=== PATIENT | male | born 1950 | race Caucasian/White ===

== ENCOUNTER → 2021-09-22 | Outpatient (CLI) | payer OTHER ==
--- NOTE | 2021-09-23 09:05 | CARDNUC ---
[place] [address] CARDIAC NUCLEAR IMAGING REPORT Name: GAUDENCIO CRUZ Room: [facility]#: [id number] Admission: 09/22/21 Attend Phys: Daisy Obrien Discharge: Date of : 50 Date of Service: 09/23/2105 Report #: [id number] THIS REPORT FOR: cc: Luciana Hotl,Luciana Thomas,Daniel Reid MD [facility] ~ APPROVED REPORT Imaging Protocol: Rest Tc-99m/Stress Tc-99m 1 day Study performed: 09/22/2021 08:30:00 Indication: Dyspnea Patient Location: Out-Patient Stress Tech: yolanda nathan Stress Nurse: FREDDY CID RN NM Tech:SOLA Seals Ht: 5 ft 7 in Wt: 177 lbs BSA: 1.92 m2 HR: 61 bpm BP: 145/86 mmHg BMI: 27.71 Rhythm: NSR Medical History Medical History: CAD s/p IN and PCI Medications: Aspirin, atorvastatin, Plavix, metoprolol Allergies: Finasteride Cardiac Risk Factors: Hyperlipidemia, hypertension, family history of coronary artery disease and former tobacco use Previous Cardiac Procedures: PCI Pretest Chest Pain Characteristics: Dyspnea on exertion Exercise History: Physically active Physical Disabilities: Knees Meds Held (24 hrs): None Meds Held (48 hrs): None Resting Data Rest SPECT myocardial perfusion imaging was performed in supine position 30 minutes following the intravenous injection of 9.7 mCi of Tc-99m Sestamibi. Time of rest injection: 839 Date: 09/22/2021 The images were gated to evaluate regional wall motion and calculate left ventricular ejection fraction. Administration Route: IV Administration Site: [place] [address] CARDIAC NUCLEAR IMAGING REPORT Name: GAUDENCIO CRUZ [id number] Admission: 09/22/21 Attend Phys: Daisy Obrien Discharge: Date of : 50 Date of Service: 09/23/21 0905 Report #: [id number] Pharmacologic Stress Pharmacologic stress test was performed by injecting Regadenoson 0.4 mg IV push over 10-15 seconds immediately followed by the intravenous injection of 34.6 mCi of Tc-99m Sestamibi. Time of stress injection: 929 Date: 09/22/2021 Administration Route: IV Administration Site: [facility] Gated Stress SPECT was performed 40 minutes after stress injection. The images were gated to evaluate regional wall motion and calculate left ventricular ejection fraction. Prone imaging was performed. Stress Test Details Stress Test: Pharmacologic stress testing performed using 0.4 mg of regadenoson per 5 mL given IV over 10 seconds. Reason for pharmacologic stress test: physical limitation. HR Max Heart Rate (APMHR): 150 bpm Resting HR: 61 bpm Target HR (85% APMHR): 127 bpm Max HR Achieved: 95 bpm % of APMHR: 63 Recovery HR: 86 bpm HR response to stress: Accelerated HR response to stress BP Resting BP: 145/86 mmHg Max BP: 148/83 mmHg Recovery BP: 147/86 mmHg BP response to stress: Normal blood pressure response to stress. ECG Resting ECG: Sinus Rhythm Stress ECG: Sinus Rhythm ST Change: None Maximum ST Deviation: 0.5 mm Arrhythmia: None Recovery ECG: Sinus Rhythm Recovery ST Change: None Recovery ST Deviation: 0.5 mm Recovery Arrhythmia: None Clinical Reason for Termination: Completed protocol Stress Symptoms: [place] [address] CARDIAC NUCLEAR IMAGING REPORT Name: MECCA CRUZLERMO [facility] [id number] Admission: 09/22/21 Attend Phys: Daisy Obrien Discharge: Date of : 50 Date of Service: 09/23/21 0905 Report #: [id number] The patient tolerated Lexiscan infusion without cardiac symptoms. Stress ECG Conclusion The baseline twelve-lead EKG shows sinus rhythm without significant ST segment or T wave abnormality. EKGs obtained during and post Lexiscan infusion show sinus rhythm with no significant ST segment changes when compared to baseline. There were no stress-induced arrhythmias. Study Quality Study: Good Artifact: No artifact Study Data At rest, the left ventricular ejection fraction was 62%.. Post stress, the left ventricular ejection was 63%.. TID = 0.95. Perfusion Perfusion images obtained at rest and post Lexiscan stress show uniform uptake of the radioisotope throughout the myocardium. There were no defects to suggest infarct or ischemia. Wall Motion Normal left ventricular wall motion. Nuclear Conclusion ECG Findings: negative for ischemia Clinical Findings: negative for ischemia Nuclear Findings: negative for ischemia Exercise Capacity: not assessed Left Ventricular Function: normal Risk Study: low Perfusion images show no defect to suggest infarct or ischemia. Left ventricular systolic function appears normal on gated studies. This is a low risk study. <Conclusion> The baseline twelve-lead EKG shows sinus rhythm without significant ST segment or T wave abnormality. EKGs obtained during and post Lexiscan infusion show sinus rhythm with no significant [place] [address] CARDIAC NUCLEAR IMAGING REPORT Name: GAUDENCIO CRUZ Room: [facility]#: [id number] Admission: 09/22/21 Attend Phys: Daisy Obrien Discharge: Date of : 50 Date of Service: 09/23/21 0905 Report #: [id number] changes when compared to baseline. There were no stress-induced arrhythmias. <ELECTRONICALLY SIGNED> By: Daniel Flores MD, FACC 09/23/21904 4 4 Daniel Flores MD, FAC /INF
== END ==
LOC: M.NUC 08-31 11:19
PROVIDERS: ATTEND Internal Medicine
DX: I25.119 Atherosclerotic heart disease of native coronary artery with unspecified angina pectoris (principal)